=== PATIENT | male | born 2005 | race Caucasian/White ===

== ENCOUNTER 2024-09-17 10:11 | Emergency (ER) | payer BC, SELFPAY ==
[2024-09-17 10:14] VITALS: BP 106/67
--- NOTE | 2024-09-17 10:58 | EDRN ---
About 2 weeks ago started w/ hematuria and went to PCP and placed on antibiotic (bactrim). Pain started 3 days after initial urine test. Bleeding stopped. Has not received results of urine test done at PCP. Lab work was done 1.5 weeks ago at [facility]. Pain after voiding in penus described as soreness. Also testicular sensitivity. No pain in abd.
--- NOTE | 2024-09-17 11:02 | EDRN ---
Marcus KELLER in w/ pt at this time.
--- NOTE | 2024-09-17 11:03 | EDRN ---
Blood in urine was noted as a couple of drops post voiding.
--- NOTE | 2024-09-17 11:08 | ED.GENMED ---
History of Present Illness
General
Chief Complaint: Male Genito-Urinary Symptoms
Source: patient
Exam Limitations: none
Time Seen by Provider: 09/17/24 10:45
History of Present Illness
History of Present Illness:
19yoM with a history of GERD and anxiety presenting with his father for evaluation of dysuria. Symptoms initially started about 2 weeks ago with hematuria. He was seen by his PCP and was started on Bactrim for a UTI. Urine culture that was sent
on 08/31/2024 came back negative. His hematuria has since resolved although he continues to have pain after urinating. He reports a burning pain in his penis that only occurs after voiding. He had some sensitivity in his testicles earlier but
denies any overt pain. He denies any abdominal pain, flank pain, fevers, vomiting, penile discharge. He is not currently sexually active.
Phy Exam
General Physical Exam
General Presentation: well appearing and no apparent distress
General age: appears stated age
General Skin: warm and dry
General Habitus: normal
General Mental: alert
ENT Exam
ENT Exam: normocephalic
Cardiovascular Exam
Cardiovascular Exam: regular rate/rhythm and no murmur
Pulmonary Exam
Pulmonary Exam: lungs clear, no respiratory distress, no rales, no crackles and no rhonchi
Gastrointestinal Exam
Gastrointestinal Exam: non tender, soft, non distended and no cva tenderness
Genitourinary Exam Male
Exam Male: normal external genitalia, no testicular swelling and no testicular tenderness
Neurological Exam
Neurological Exam: alert
Miguel Coma Scale
Eye Opening: Spontaneous
Verbal Response: Oriented
Motor Response: Obeys Commands
GCS Total Score: 15
Skin Exam
Skin Exam: normal color and warm/dry
Psychiatric Exam
Psychiatric Exam: normal mood/affect
Course
Orders/Labs/Results
Orders:
Orders
09/17/24 11:07
Scrotum US [US Scrotum] Urgent
Comment:
Reason For Exam: testicular discomfort
09/17/24 11:25
Complete Blood Count/With Diff Urgent
Comprehensive Metabolic Panel Urgent
09/17/24 11:56
Urinalysis Reflex To Culture Urgent
Date Specimen was Collected: 09/17/24
Time Specimen was Collected: 10:17
Chlamydia/GC by PCR Urgent
RON Source: Urine
Specimen Description:
Source:: URINE
Date Specimen was Collected: 09/17/24
Time Specimen was Collected: 11:18
09/17/24 12:08
CT Abd/pel Without Iv Or Oral Urgent
Comment:
Reason For Exam: hematuria, dysuria
09/17/24 16:29
Add On - Microbiology Urgent
Tests Added?: urine culture
Abnormal Lab Results
09/17/24
11:25
WBC 4.7 L 10^3/uL
(4.8-10.8)
RBC 4.43 L 10^6/uL
(4.70-6.10)
MCH 31.8 H pg
(27.0-31.0)
Carbon Dioxide 31 H mmol/L
(22-30)
ALT 138 H U/L
(0-50)
Alkaline Phosphatase 308 H U/L
(38-126)
09/17/24 11:25
09/17/24 11:25
Vital Signs
Initial and Last Documented VS:
Initial Vital Signs
Temp Pulse Resp BP Pulse Ox
98 F 72 18 106/67 100
09/17/24 10:14 09/17/24 10:14 09/17/24 10:14 09/17/24 10:14 09/17/24 10:14
Last Documented Vital Signs
Temp Pulse Resp BP Pulse Ox
98 F 80 16 128/78 100
09/17/24 10:14 09/17/24 16:06 09/17/24 16:06 09/17/24 16:06 09/17/24 16:06
MDM/Problems Addressed
Differential Diagnosis Includes:
19yoM here with dysuria x 2 weeks. Had hematuria at symptom onset but this has resolved. Also reports sensitivity in testicles. No f/c. No flank pain or vomiting. VSS. He is well-appearing no acute distress. Exam reassuring. Differential
diagnosis includes but is not limited to: UTI, urethritis, epididymitis, kidney stone
Initial ED plan: Check CBC, CMP, UA, GC/chlamydia, and scrotal/renal ultrasound.
*Critical Care Note
Total Time (30-74mins, 75-104mins- exclusive of procedures): Not Applicable
Update Note
Update Note:
Labs show a transaminitis with ALT of 138 and alk phos of 308. AST and bilirubin are normal. Unclear significance of this as he has no RUQ pain. Renal function normal. UA bland without hematuria or signs of infection. GC/chlamydia testing also
negative. Scrotal ultrasound shows a moderate L varicocele without other acute findings. Renal ultrasound switched to a CT given LFTs. CT shows mild distention of bladder and mild diffuse bladder wall thickening suggesting acute cystitis. There
is also mild bilateral symmetric dilatation of both intrarenal collecting systems. No convincing evidence of a UTI on today's urinalysis and patient also had a normal urine culture at symptom onset. Will defer further antibiotics at this time.
Urine culture added for completeness. He was advised to follow-up with urology. ED return precautions discussed. Patient in agreement with plan and was discharged in stable condition.
ED Attending Note
-
Portions of this chart may have been created with voice recognition software.� Occasional wrong word or��sound alike� substitutions may have occurred due to the inherent limitations of voice recognition software.
Discharge Plan
Departure
Patient Disposition: Home (Routine Discharge)
Date of Disposition: 09/17/24
Time of Disposition: 16:27
Patient with high blood pressure during this ER visit?: No
Discharge Problem:
Dysuria
Instructions: Bladder spasm
Referrals:
Joshua Moore Jr., MD [Active] -
Lefty Leija MD [Family Provider] -
Activity Restrictions/Additional Instructions:
Please follow-up with your family doctor and urology. Return to the ER with any new or worsening symptoms.
Interventions
Interventions:
*Risk Screen - Suicide Last Done: 09/17/24 11:33
*General Assessment Last Done: 09/17/24 11:33
*Neglect/Abuse Screening Last Done: 09/17/24 11:33
ED- Fall Risk Assessment Last Done: 09/17/24 11:33
*ED COVID-19 Vaccine History Last Done: 09/17/24 11:33
*Nursing Disposition Last Done: 09/17/24 16:54
ED-Male Genitourinary Assessment Last Done: 09/17/24 11:33
Discharge Date and Time
Discharge Date/Time: 09/17/24 16:55
Print Language: [place]
[2024-09-17 11:33] VITALS: BP 116/59
[2024-09-17 11:46] LABS: % Basophils 0.6 % (0-2); % Eosinophils 5.1 % (0-6); % Immature Granulocytes 0.2 % (0-0.5); % Lymphocytes 43.2 % (20.5-51.1); % Monocytes 8.1 % (1.7-9.3); % Neutrophils 42.8 % (42.2-75.2); Absolute Eosinophils 0.2 10^3/uL (0-0.7); Absolute Monocytes 0.4 10^3/uL (0.1-0.6); Hematocrit 40.3 % (39.0-52.0); Hemoglobin 14.1 g/dL (13.0-18.0); Mean Corpuscular Hgb 31.8 pg (27.0-31.0); Mean Platelet Volume 9.8 fL (7.4-10.4); Nucleated Red Blood Cells % 0 % (-); Platelet Count 272 10^3/uL (130-400); Red Blood Cell Count 4.43 10^6/uL (4.70-6.10); Red Cell Dist. Width 12.1 % (11.5-14.5); White Blood Cell Count 4.7 10^3/uL (4.8-10.8)
[2024-09-17 12:02] LABS: ALT (SGPT) 138 U/L (0-50); AST (SGOT) 51 U/L (17-59); Albumin 3.9 g/dl (3.5-5.0); Alkaline Phosphatase 308 U/L (38-126); Blood Urea Nitrogen 12 mg/dl (9-20); Calcium 9.2 mg/dl (8.4-10.2); Carbon Dioxide 31 mmol/L (22-30); Chloride 102 mmol/L (98-107); Glucose 77 mg/dl (70-99); Sodium 137 mmol/L (135-145); Total Bilirubin 0.8 mg/dl (0.2-1.3); Total Protein 7.1 g/dl (6.3-8.2); eGFR > 60.00
[2024-09-17 12:14] LABS: Urine Albumin Negative (Neg - Trace); Urine Bilirubin Negative (Negative); Urine Character Clear (Clear); Urine Color Yellow; Urine Glucose Negative (Negative); Urine Ketone Negative (Negative); Urine Leukocyte Negative (Negative); Urine Nitrite Negative (Negative); Urine Occult Blood Negative (Negative); Urine Specific Gravity 1.015 (<1.030); Urine Urobilinogen Negative (Neg - 1+)
[2024-09-17 14:29] VITALS: BP 143/77
[2024-09-17 15:02] VITALS: BP 121/70
[2024-09-17 15:05] VITALS: BMI 25.1
[2024-09-17 16:06] VITALS: BP 128/78
== END 2024-09-17 16:55 | disposition home or self-care (01) ==
LOC: EMR 10:11
PROVIDERS: Emergency Medicine; Physician Assistant; EMERGENCY PHYSICIAN Emergency Medicine; FAMILY PHYSICIAN Internal Medicine
DX: R30.0 Dysuria (principal); K21.9 Gastro-esophageal reflux disease without esophagitis; F41.9 Anxiety disorder, unspecified
CPT/HCPCS: 99284; 74176; 76870; 80053; 81003; 85025; 87086; 87491; 87591; 93976